=== PATIENT | male | born 1955 | race Caucasian/White ===

== ENCOUNTER 2021-08-24 20:20 | Emergency (ER) | payer OTHER ==
[~2021-08-24] VITALS: Ht 182.9 cm; Wt 102.1 kg
[2021-08-24 20:27] VITALS: BP_SYST 108; BP_SYST 116; BP_DIAS 58; BP_DIAS 71
--- NOTE | 2021-08-24 20:27 | NUR ---
TO BED AMBULATORY
--- NOTE | 2021-08-24 20:45 | NUR ---
SEE COMLETE ASSESSMENT.
--- NOTE | 2021-08-24 21:00 | NUR ---
ERMD at bedside for medical evaluation.
--- NOTE | 2021-08-24 21:10 | NUR ---
Patient noted to have existing wounds upon arrival to ER. ERMD cleaned wound and placed iodine packing. Wound noted with slough and purluent drainage, approximately 3cm in length, 0.5cm in width, 1cm deep. Wound covered with dressing.
[2021-08-24] MEDS ORDERED: IBUP-2213 PO (21:52)
[2021-08-24] MEDS ORDERED: CEPH-588 PO (21:52)
[2021-08-24 22:00] VITALS: BP 120/70
--- NOTE | 2021-08-24 22:00 | NUR ---
Patient discharged with v/s stable. Written and verbal after care instructions given and explained. Patient alert, oriented and verbalized understanding of instructions. Ambulatory with steady gait. All questions addressed prior to discharge. ID band removed. Patient advised to follow up with PMD. Rx of Keflex, Ibuprofen given. Patient educated on indication of medication including possible reaction and side effects. Opportunity to ask questions provided and answered.
== END 2021-08-24 22:00 | disposition home or self-care (01) ==
LOC: MED 20:20
DX: L02.11 Cutaneous abscess of neck (principal); L03.221 Cellulitis of neck
CPT/HCPCS: 99283

== ENCOUNTER 2022-12-05 08:34 | Emergency (ER) | payer OTHER ==
[~2022-12-05] VITALS: Ht 177.8 cm; Wt 90.7 kg
[~2022-12-05 08:34] MED LIST: CEPH-588 PO; IBUP-2213 PO
[2022-12-05 08:48] VITALS: BP 152/44
--- NOTE | 2022-12-05 08:57 | NUR ---
WHEELCHAIR ASSIST FROM CAR. ASSISTED TO BED 6.
[2022-12-05] MEDS ORDERED: MORPHINE SULFATE 4 MG/ML SYR IM ONE (09:20)
--- NOTE | 2022-12-05 09:52 | NUR ---
FC INSERTED PER MD ORDER.
[2022-12-05] MEDS ORDERED: TAMS0.4C96 PO (10:08)
--- NOTE | 2022-12-05 10:46 | NUR ---
UA CANCELED BY DR. MONTEZ. F/C CHANGED TO LEG BAG THEN D/C'D PT HOME.
[2022-12-05 10:47] VITALS: BP 145/75
--- NOTE | 2022-12-05 10:47 | NUR ---
Patient discharged with v/s stable. Written and verbal after care instructions given and explained. Patient alert, oriented and verbalized understanding of instructions. Ambulatory with steady gait. All questions addressed prior to discharge. ID band removed. Patient advised to follow up with PMD. Rx of FLOMAX given. Patient educated on indication of medication including possible reaction and side effects. Opportunity to ask questions provided and answered.
== END 2022-12-05 10:47 | disposition home or self-care (01) ==
LOC: MED 08:34
DX: R33.9 Retention of urine, unspecified (principal); Z79.899 Other long term (current) drug therapy
CPT/HCPCS: 51702; 96372; 99284; J2270